=== PATIENT | male | born 1970 | race African-American/Black ===

== ENCOUNTER 2016-09-15 10:25 | Emergency (ER) | payer OTHER ==
[~2016-09-15] VITALS: Ht 177.8 cm; Wt 100.4 kg
[2016-09-15 10:26] VITALS: BP 169/93
[2016-09-15] MEDS ORDERED: VIAG100T PO (10:38)
[2016-09-15] MEDS ORDERED: METF500T PO (10:38)
[2016-09-15] MEDS ORDERED: JARD1TAB PO (10:38)
[2016-09-15] MEDS ORDERED: VALI5TAB PO (10:38)
[2016-09-15] MEDS ORDERED: VOLT1GEL24 TD (10:38)
== END 2016-09-15 12:38 | disposition left against medical advice (07) ==
LOC: M ED 11:40
DX: M54.2 Cervicalgia (principal); Z53.21 Procedure and treatment not carried out due to patient leaving prior to being seen by health care provider